=== PATIENT | female | born 1990 | race Caucasian/White ===

== ENCOUNTER 2020-08-22 12:10 | Emergency (ER) | payer OTHER ==
[2020-08-22 13:06] LABS: BASOPHIL 0.4 % (0-2); EOSINOPHIL 1.2 % (0-5); HCT 34.2 % (37.0-47.0); LYMPHOCYTE 19.4 % (15-48); MCH 27.3 pg (25.0-31.0); MCHC 32.2 g/dL (32.0-36.0); MCV 84.9 fL (78.0-100.0); MONOCYTE 6.8 % (0-12); MPV 10.3 fL (6.0-9.5); NEUTROPHIL 71.8 % (41-80); NRBC 0; PLT 196 K/uL (150-400); RBC 4.03 M/uL (4.20-5.40); RDW 12.8 % (11.5-14.0); WBC 7.5 K/uL (4.0-10.5)
[2020-08-22 13:27] LABS: ALBUMIN 2.4 g/dL (3.4-5.0); BUN/CREAT RATIO (CALC) 5.6 RATIO; CREATININE 0.54 mg/dL (0.51-0.95); GLOBULIN (CALCULATION) 4.3 g/dL; POTASSIUM 3.5 mmol/L (3.5-5.1); TOTAL PROTEIN 6.7 g/dL (6.4-8.2)
[2020-08-22 15:10] LABS: BILIRUBIN NEGATIVE (NEGATIVE); BLOOD NEGATIVE Ery/uL (NEGATIVE); CLARITY HAZY (CLEAR); COLOR YELLOW (YELLOW); GLUCOSE (U) TRACE mg/dL (NORMAL); LEUKOCYTES TRACE Leu/uL (NEGATIVE); NITRITE NEGATIVE (NEGATIVE); PROTEIN NEGATIVE (NEGATIVE); SPECIFIC GRAVITY 1.015 (1.001-1.030); UROBILINOGEN 0.2 mg/dL (0.2-1.0); pH 6.5 (5.0-9.0)
[2020-08-22 15:26] LABS: BACTERIA 1+; SQUAMOUS EPITHELIAL CELLS >50
[2020-08-22 15:27] LABS: CALCIUM OXALATE CRYSTALS TRACE
[2020-08-22] MEDS ORDERED: ZOFRAN4 M1 PO (15:28)
[2020-08-22] MEDS ORDERED: KEFLEX250 MG PO (15:28)
== END 2020-08-22 15:53 | disposition home or self-care (01) ==
LOC: FER 12:10
PROVIDERS: Internal Medicine
DX: E86.0 Dehydration (principal); N39.0 Urinary tract infection, site not specified; Z88.1 Allergy status to other antibiotic agents
CPT/HCPCS: 36415; 80053; 81001; 85025; 93005; J7030